=== PATIENT | male | born 1930 | race Two or more races ===

== ENCOUNTER 2016-12-07 23:57 | Emergency (ER) | payer OTHER ==
--- NOTE | 2016-12-08 00:32 | PDOC ---
History of Present Illness - General History Source: Patient, Family <Kian Chavez - Last Filed: 12/08/16 01:33> - General History Source: Patient Exam Limitations: No Limitations - History of Present Illness Initial Comments: 12/08/16 00:47 The patient is a 86 year old male with significant past medical history of hypertension who presents to the ED for right lower extremity pain prior to arrival. Patient reports prior to going to bed tonight, he developed right lower extremity pain that he describes as a burning sensation with no loss of sensation. He then decided to come into the ER for evaluation. Patient reports having some vascular issues for some recent time and had a recent doppler study that revealed no acute pathology. He denies h/o of diabetes. The patient denies fever, chills, cough, SOB, chest pain, and palpitations. The patient denies abdominal pain, nausea, vomiting, and diarrhea. Allergies: NKDA Social History: No alcohol, tobacco, or drug use reported. Past Surgical History: None reported PCP: None reported <April Jaffe - Last Filed: 12/08/16 02:29> <Janki Martinez - Last Filed: 12/08/16 03:01> - General Chief Complaint: Pain, Acute Stated Complaint: PAIN Time Seen by Provider: 12/08/16 01:34 Past History <Kian Chavez - Last Filed: 12/08/16 01:33> <April Jaffe - Last Filed: 12/08/16 02:29> - Immunization History Immunization Up to Date: No - Psycho/Social/Smoking Cessation Hx Suicidal Ideation: No Smoking History: Never smoked Have you smoked in the past 12 months: No Information on smoking cessation initiated: No Hx Alcohol Use: No Drug/Substance Use Hx: No <Janki Martinez - Last Filed: 12/08/16 03:01> - Past Medical History Allergies/Adverse Reactions: Allergies Allergy/AdvReac Type Severity Reaction Status Date / Time No Known Allergies Allergy Verified 12/08/16 00:30 Home Medications: Ambulatory Orders Aspirin [ASA -] 81 mg PO DAILY 12/08/16 Docusate Sodium 100 mg PO DAILY 12/08/16 Finasteride [Proscar] 5 mg PO DAILY 12/08/16 Levothyroxine [Synthroid -] 125 mcg PO DAILY 12/08/16 Meloxicam [Mobic] 15 mg PO DAILY 12/08/16 Metoprolol Succinate [Toprol Xl -] 25 mg PO DAILY 12/08/16 Omeprazole 20 mg PO DAILY 12/08/16 Simvastatin [Zocor] 10 mg PO DAILY 12/08/16 Tamsulosin HCl [Flomax] 0.4 mg PO DAILY 12/08/16 Review of Systems - Review of Systems Able to Perform ROS?: Yes Comments:: 12/08/16 00:47 CONSTITUTIONAL: Absent: fever, no chills, no fatigue EYES: Absent: visual changes ENT: Absent: ear pain, no sore throat CARDIOVASCULAR: Absent: chest pain, no palpitations RESPIRATORY: Absent: cough, no SOB GI: Absent: abdominal pain, no nausea, no vomiting, no constipation, no diarrhea GENITOURINARY: Absent: dysuria, no frequency, no hematuria MUSCULOSKELETAL: +R lower extremity pain Absent: back pain, no arthralgia SKIN: Absent: rash NEURO: Absent: headache <April Jaffe - Last Filed: 12/08/16 02:29> *Physical Exam - Vital Signs Last Vital Signs Temp Pulse Resp BP Pulse Ox 97.5 F L 62 18 151/78 100 12/08/16 00:14 12/08/16 00:14 12/08/16 00:14 12/08/16 00:14 12/08/16 00:20 <Kian Chavez - Last Filed: 12/08/16 01:33> - Vital Signs Last Vital Signs Temp Pulse Resp BP Pulse Ox 97.5 F L 62 18 151/78 100 12/08/16 00:14 12/08/16 00:14 12/08/16 00:14 12/08/16 00:14 12/08/16 00:20 - Physical Exam Comments: 12/08/16 00:47 GENERAL: Well-appearing, well-nourished. No apparent distress. HEENT: Normocephalic, atraumatic. PERRL, EOM intact. CARDIOVASCULAR: Normal S1, S2. Regular rate and rhythm. PULMONARY: Clear to auscultation bilaterally. ABDOMEN: Soft, non-distended, non-tender. EXTREMITIES: Normal ROM in all four extremities. Bilateral +1 pitting edema. No gross deformities. SKIN: Warm, dry. No rash. Wound to the medial malleolus of the right ankle that does not appear to be infected or bleeding. NEUROLOGICAL: No focal neurological deficits. <April Jaffe - Last Filed: 12/08/16 02:29> - Vital Signs Last Vital Signs Temp Pulse Resp BP Pulse Ox 97.5 F L 62 18 151/78 100 12/08/16 00:14 12/08/16 00:14 12/08/16 00:14 12/08/16 00:14 12/08/16 00:14 <Janki Martinez - Last Filed: 12/08/16 03:01> ED Treatment Course - RADIOLOGY Radiology Studies Ordered: Category Date Time Status DUPLEX VASCUL [id number] [US] Stat Ultrasound 12/08/16 00:38 Taken <Kian Chavez - Last Filed: 12/08/16 01:33> - RADIOLOGY Radiograph Interpretation: 12/08/16 02:29 EXAM: Venous duplex bilateral lower extremities Reviewed by Imaging operations assistant: FINDINGS: There is no DVT in the right or left lower extremity. IMPRESSION: No DVT. <April Jaffe - Last Filed: 12/08/16 02:29> Progress Note - Progress Note Progress Note: please note I erroneously placed my name on this chart but did not see the patient and did not participate in her care as she was seen by Dr Chavez <Janki Martinez - Last Filed: 12/08/16 03:01> Medical Decision Making - Medical Decision Making 12/08/16 01:34 Dr. Chavez: The scribe's documentation has been prepared under my direction and personally reviewed by me in its entirery. I confirm that the note above accurately reflects all work, treatment, procedures, and medical decision making performed by me. Bilateral Dopplers are negative for DVT. Patient will be discharged to follow- up with his primary care doctor and wound care doctor. <Kian Chavez - Last Filed: 12/08/16 01:33> *DC/Admit/Observation/Transfer - Discharge Dispostion Admit: No <Kian Chavez - Last Filed: 12/08/16 01:33> - Attestations Scribe Attestion: 12/08/16 00:47 Documentation prepared by April Jaffe, acting as certified medical technician for Kian Chavez MD/DO. <April Jaffe - Last Filed: 12/08/16 02:29> <Janki Martinez - Last Filed: 12/08/16 03:01> Diagnosis at time of Disposition: Right leg pain - Discharge Dispostion Disposition: HOME Condition at time of disposition: Stable - Patient Instructions Printed Discharge Instructions: DI for Leg Pain
[2016-12-08 00:43] VITALS: BMI 24.3
[2016-12-08 01:39] VITALS: BP 150/80; PULSE 66; TEMP 98
== END 2016-12-08 01:42 | disposition home or self-care (01) ==
LOC: JER 23:57
DX: M79.604 Pain in right leg (principal); I10 Essential (primary) hypertension; E03.9 Hypothyroidism, unspecified; E78.00 Pure hypercholesterolemia, unspecified
CPT/HCPCS: 93970-TC; 99282-25

== ENCOUNTER 2020-07-01 10:10 | Emergency (ER) | payer OTHER ==
[2020-07-01 10:26] VITALS: BMI 20.9
[2020-07-01] MEDS ORDERED: SODIUM CHLORIDE 0.9% 500 ML INFUS.BAG IV ONE ×2 (10:43→13:04)
[2020-07-01 11:48] LABS: BASO % 0.3 % (0-2.0); EOS % 0.2 % (0-4.5); HEMATOCRIT 28.6 % (35.4-49); HEMOGLOBIN 9.6 GM/dL (11.7-16.9); LYMPH % 13.6 % (8-40); MCH 30.7 pg (25.7-33.7); MCHC 33.8 g/dl (32.0-35.9); MEAN CELL VOLUME 90.9 fl (80-96); MEAN PLT VOLUME 8.3 fl (7.5-11.1); NEUT % 79.9 % (42.8-82.8); PLATELET COUNT 127 K/MM3 (134-434); RBC 3.14 M/mm3 (4.00-5.60); RDW 16.2 % (11.9-15.9)
[2020-07-01 11:54] LABS: PROTHROMBIN TIME (PATIENT) 12.3 SEC (9.7-13.0)
[2020-07-01 12:05] LABS: CHLORIDE 102 mmol/L (98-107); POTASSIUM 4.3 mmol/L (3.5-5.1); SODIUM 135 mmol/L (136-145)
[2020-07-01 12:08] LABS: ALBUMIN 2.8 g/dl (3.4-5.0); ANION GAP 4 MMOL/L (8-16); BLOOD UREA NITROGEN 27.3 mg/dL (7-18); CALCIUM 7.8 mg/dL (8.5-10.1); CO2 29 mmol/L (21-32); GLUCOSE,RANDOM 77 mg/dL (74-106); MAGNESIUM 2.1 mg/dL (1.8-2.4)
[2020-07-01 12:11] LABS: CREATININE 1.1 mg/dL (0.55-1.3); SGOT/AST 11 U/L (15-37); SGPT/ALT 15 U/L (13-61)
[2020-07-01 12:13] LABS: BILIRUBIN,TOTAL 0.4 mg/dL (0.2-1); TOT PROT 5.8 g/dl (6.4-8.2)
[2020-07-01 12:17] LABS: ALK PHOS 104 U/L (45-117)
[2020-07-01 15:57] LABS: EPI CELLS 4 /uL (0-25.1); HYALINE CASTS 4 /uL (0-3.1); URINE APPEARANCE CLEAR; URINE BACTERIA 148 /uL (0-1359); URINE BILIRUBIN NEGATIVE (NEGATIVE); URINE COLOR YELLOW; URINE GLUCOSE (UA) NEGATIVE (NEGATIVE); URINE KETONE NEGATIVE (NEGATIVE); URINE LEUK ESTERASE TRACE (NEGATIVE); URINE NITRITE NEGATIVE (NEGATIVE); URINE PROTEIN NEGATIVE (NEGATIVE); URINE RBC 193 /uL (0-23.9); URINE UROBILINOGEN 0.2 mg/dL (0.2-1.0); URINE WBC 290 /uL (0-25.8)
[2020-07-01] MEDS ORDERED: CEPHALEXIN MONOHYDRATE 500 MG CAPSULE (UD) PO ONE (18:35)
[2020-07-01] MEDS ORDERED: CEPHALEXIN MONOHYDRATE 500 MG CAPSULE (UD) ONE (19:02)
[2020-07-01 20:10] VITALS: BP 160/63; PULSE 61; TEMP 98.8
== END 2020-07-01 20:10 | disposition home or self-care (01) ==
LOC: JER 10:10
DX: D64.9 Anemia, unspecified (principal); N30.01 Acute cystitis with hematuria
CPT/HCPCS: 36415; 71045-TC-FY; 74177-TC; 80053; 81003; 82272; 83735; 84484; 85025; 85610; 87040; 87086; 93005; 93010; 99285-25; C9803; Q9967; U0003

== ENCOUNTER 2020-09-25 04:23 | Day surgery (SDC) | payer OTHER ==
[2020-09-24 15:35] VITALS: BMI 20.9
[2020-09-25 07:22] VITALS: TEMP 97.8
[2020-09-25] MEDS ORDERED: NITROGLYCERIN 50 MG/10 ML VIAL IVPB ONE (07:29)
[2020-09-25] MEDS ORDERED: HEPARIN NA (PORCINE) 5,000 UNITS/ML 1ML VIAL ONE (07:29)
[2020-09-25] MEDS ORDERED: LIDOCAINE HCL 1%, 10 MG/ML (20ML VIAL) ONE (07:29)
[2020-09-25] MEDS ORDERED: MIDAZOLAM HCL 2 MG/2 ML SINGLE DOSE VIAL ONE (09:38)
[2020-09-25] MEDS ORDERED: LIDOCAINE HCL 1%, 10 MG/ML (20ML VIAL) SQ ONE (11:10)
[2020-09-25] MEDS ORDERED: HEPARIN NA (PORCINE) 5,000 UNITS/ML 1ML VIAL SQ ONE (11:10)
[2020-09-25] MEDS ORDERED: CLOPIDOGREL BISULFATE 75 MG TABLET (FP) PO ONE (11:52)
[2020-09-25] MEDS ORDERED: SODIUM CHLORIDE 1,000 ML IV SCH (12:15)
[2020-09-25] MEDS ORDERED: ONDANSETRON 4 MG/2 ML VIAL IVPUSH PRN (12:15)
[2020-09-25] MEDS ORDERED: CLOPIDOGREL BISULFATE 75 MG TABLET (FP) ONE (12:18)
[2020-09-25 14:12] VITALS: BP 127/60; PULSE 62
== END 2020-09-25 14:10 | disposition home or self-care (01) ==
LOC: JASU-SURG 04:23
PROVIDERS: ATTEND Surgery Vascular Surgery
PROC: 047M3Z1 Dilation of Right Popliteal Artery using Drug-Coated Balloon, Percutaneous Approach (ICD-10-PCS; principal; 2020-09-25 09:30)
DX: I70.221 Atherosclerosis of native arteries of extremities with rest pain, right leg (principal); L97.319 Non-pressure chronic ulcer of right ankle with unspecified severity
CPT/HCPCS: 37224; C1885; 76000-TC-FY; 94760; J1644

== ENCOUNTER 2021-01-11 23:02 | Emergency (ER) | payer OTHER ==
[2021-01-11 23:11] VITALS: BP 105/72; PULSE 51; TEMP 97.9; BMI 20.7
[2021-01-11 23:38] LABS: BASO % 0.1 % (0-2.0); EOS % 0.4 % (0-4.5); HEMATOCRIT 27.4 % (35.4-49); HEMOGLOBIN 9.3 GM/dL (11.7-16.9); MCH 30.8 pg (25.7-33.7); MCHC 33.9 g/dl (32.0-35.9); MEAN CELL VOLUME 90.7 fl (80-96); MEAN PLT VOLUME 7.7 fl (7.5-11.1); MONO % 3.3 % (3.8-10.2); NEUT % 84.2 % (42.8-82.8); PLATELET COUNT 142 K/MM3 (134-434); RBC 3.02 M/mm3 (4.00-5.60)
[2021-01-11 23:47] LABS: INR 0.87 (0.83-1.09); PROTHROMBIN TIME (PATIENT) 10.7 SEC (9.7-13.0)
[2021-01-11 23:50] LABS: ACTIVATED PTT 42.9 SECONDS (25.2-36.5)
[2021-01-12] MEDS ORDERED: ACETAMINOPHEN 1000 MG/100 ML VIAL (NON FORMULARY) IVPB ONE (00:27)
[2021-01-12] MEDS ORDERED: ACETAMINOPHEN INJECTION 100 ML IVPB ONE (00:28)
[2021-01-12 00:45] LABS: BILIRUBIN,TOTAL 0.2 mg/dL (0.2-1); BLOOD UREA NITROGEN 33.6 mg/dL (7-18); CALCIUM 8.8 mg/dL (8.5-10.1); CREATININE 0.8 mg/dL (0.55-1.3); TOT PROT 6.3 g/dl (6.4-8.2)
[2021-01-12] MEDS ORDERED: LACTATED RINGERS SOLUTION 1000 ML INFUS.BAG IV ONE (03:00)
[2021-01-12 04:04] LABS: EPI CELLS 5 /uL (0-25.1); HYALINE CASTS 1 /uL (0-3.1); URINE APPEARANCE CLEAR; URINE BACTERIA 17 /uL (0-1359); URINE BILIRUBIN NEGATIVE (NEGATIVE); URINE COLOR YELLOW; URINE GLUCOSE (UA) NEGATIVE (NEGATIVE); URINE KETONE NEGATIVE (NEGATIVE); URINE LEUK ESTERASE TRACE (NEGATIVE); URINE NITRITE NEGATIVE (NEGATIVE); URINE PROTEIN NEGATIVE (NEGATIVE); URINE RBC 359 /uL (0-23.9); URINE UROBILINOGEN 0.2 mg/dL (0.2-1.0); URINE WBC 13 /uL (0-25.8)
== END 2021-01-12 04:56 | disposition home or self-care (01) ==
LOC: JER 23:02
PROC: 3E033NZ Introduction of Analgesics, Hypnotics, Sedatives into Peripheral Vein, Percutaneous Approach (ICD-10-PCS; principal; 2021-01-12)
DX: K59.00 Constipation, unspecified (principal)
CPT/HCPCS: 36415; 74177-TC; 80053; 81003; 83690; 84484; 85025; 85610; 85730; 86850; 86900; 86901; 87086; 99285-25; C9803; J0131; Q9967; U0003; U0005

== ENCOUNTER 2021-01-18 15:58 | Emergency (ER) | payer OTHER ==
[2021-01-18 16:27] VITALS: TEMP 98.8; BMI 20.9
[2021-01-18 17:21] LABS: BASO % 0.2 % (0-2.0); EOS % 0.5 % (0-4.5); HEMATOCRIT 22.7 % (35.4-49); HEMOGLOBIN 7.7 GM/dL (11.7-16.9); MCH 31.1 pg (25.7-33.7); MEAN CELL VOLUME 91.6 fl (80-96); MEAN PLT VOLUME 7.6 fl (7.5-11.1); MONO % 6.4 % (3.8-10.2); NEUT % 70.9 % (42.8-82.8); PLATELET COUNT 146 10^3/uL (134-434); RBC 2.48 M/mm3 (4.00-5.60); RDW 17.5 % (11.9-15.9); WHITE BLOOD COUNT 5.2 K/mm3 (4.0-10.0)
[2021-01-18 17:36] LABS: CHLORIDE 103 mmol/L (98-107); SODIUM 134 mmol/L (136-145)
[2021-01-18 17:39] LABS: CALCIUM 8.2 mg/dL (8.5-10.1)
[2021-01-18 17:40] LABS: ALBUMIN 2.5 g/dl (3.4-5.0); ANION GAP 5 MMOL/L (8-16); CO2 27 mmol/L (21-32); GLUCOSE,RANDOM 69 mg/dL (74-106); LIPASE 88 U/L (73-393)
[2021-01-18 17:42] LABS: SGPT/ALT 20 U/L (13-61)
[2021-01-18 17:43] LABS: CREATININE 0.9 mg/dL (0.55-1.3); SGOT/AST 25 U/L (15-37)
[2021-01-18 17:44] LABS: TOT PROT 5.8 g/dl (6.4-8.2)
[2021-01-18 17:46] LABS: ALK PHOS 91 U/L (45-117)
[2021-01-18 18:06] LABS: BILIRUBIN,TOTAL 0.3 mg/dL (0.2-1)
[2021-01-18] MEDS ORDERED: SODIUM CHLORIDE 1,000 ML IV STA (18:13)
[2021-01-18 20:42] LABS: INR 0.97 (0.83-1.09); PROTHROMBIN TIME (PATIENT) 11.7 SEC (9.7-13.0)
[2021-01-18 20:45] LABS: ACTIVATED PTT 36.3 SECONDS (25.2-36.5)
[2021-01-18 21:05] VITALS: BP 120/43; PULSE 61
== END 2021-01-18 21:09 | disposition short-term general hospital (02) ==
LOC: JER 15:58
PROC: 3E0337Z Introduction of Electrolytic and Water Balance Substance into Peripheral Vein, Percutaneous Approach (ICD-10-PCS; principal; 2021-01-18)
DX: I74.09 Other arterial embolism and thrombosis of abdominal aorta (principal)
CPT/HCPCS: 36415; 71045-TC-FY; 71275-TC; 74174-TC; 80053; 82272; 82550; 83605; 83690; 84443; 84484; 85025; 85610; 85730; 86850; 86900; 86901; 93005; 93010; 99284-25; C9803; U0003; U0005